=== PATIENT | male | born 1935 | race Caucasian/White ===

== ENCOUNTER → 2017-09-30 | Outpatient (REF) | payer MEDICARE, OTHER ==
[2017-09-30 15:24] LABS: TOTAL PROTEIN,RANDOM URINE 680.6 MG/DL (0.0-12.0)
[2017-10-01 10:38] LABS: CREATININE,RANDOM URINE 81.6 MG/DL
== END ==
LOC: M LAB REF 12:56
DX: N18.4 Chronic kidney disease, stage 4 (severe) (principal)
CPT/HCPCS: 82570

== ENCOUNTER → 2017-10-15 | Outpatient (CLI) | payer MEDICARE, OTHER | LOC: M RAD 13:53 | DX: Z01.818 Encounter for other preprocedural examination (principal); R91.8 Other nonspecific abnormal finding of lung field; I50.9 Heart failure, unspecified; I11.0 Hypertensive heart disease with heart failure; E11.9 Type 2 diabetes mellitus without complications; K21.9 Gastro-esophageal reflux disease without esophagitis | CPT/HCPCS: 71046 ==

== ENCOUNTER → 2017-11-07 | Outpatient (REF) | payer MEDICARE, OTHER ==
[2017-11-07 19:41] LABS: FERRITIN 152 NG/ML (26-388); IRON (FE) 62 UG/DL (65-175); PERCENT SATURATION 21.8 % (19.7-50.0); TOTAL IRON BINDING CAPACITY 284 UG/DL (250-450)
[2017-11-07 20:06] LABS: TOTAL PROTEIN,RANDOM URINE 477.9 MG/DL (0.0-12.0)
== END ==
LOC: M LAB REF 17:10
DX: N18.4 Chronic kidney disease, stage 4 (severe) (principal); E11.22 Type 2 diabetes mellitus with diabetic chronic kidney disease; D63.1 Anemia in chronic kidney disease
CPT/HCPCS: 83550

== ENCOUNTER → 2018-01-02 | Outpatient (REF) | payer MEDICARE, OTHER ==
[2018-01-02 16:57] LABS: HEMOGLOBIN 11.5 g/dl (13.5-17.5)
[2018-01-02 17:35] LABS: ANION GAP 11 MEQ/L (8-16); BLOOD UREA NITROGEN 88 MG/DL (7-18); CALCIUM LEVEL 8.1 MG/DL (8.8-10.2); CARBON DIOXIDE LEVEL 21 MEQ/L (21-32); CHLORIDE LEVEL 111 MEQ/L (98-107); CREATININE FOR GFR 3.44 MG/DL (0.70-1.30); GLOMERULAR FILTRATION RATE 18.3 (>35); GLUCOSE, FASTING 103 MG/DL (70-100); POTASSIUM SERUM 4.3 MEQ/L (3.5-5.1); SODIUM LEVEL 143 MEQ/L (136-145)
== END ==
LOC: M LABDRAW1 15:56
DX: M48.061 Spinal stenosis, lumbar region without neurogenic claudication (principal)
CPT/HCPCS: 80048

== ENCOUNTER 2018-01-07 11:45 | Inpatient (IN) | payer MEDICARE, OTHER ==
[2018-01-07] MEDS: methylPREDNISolone INJ 125 MG/2 ML VIAL (J2930) IV ×2 (06:00)
[2018-01-07] MEDS: LR 1,000 ML IV ×2 (06:00→16:45)
[2018-01-07] MEDS: BUPIVACAINE/EPIN 0.25% 30 ML VIAL As Ordered (10:26)
[2018-01-07] MEDS: THROMBIN SOLN 20,000 UNITS KIT As Ordered (10:26)
[2018-01-07] MEDS: BACITRACIN PWD 50,000 UNITS VIAL As Ordered (10:27)
[2018-01-07] MEDS: BUPIVACAINE HCL 0.5% 10 ML VIAL As Ordered (10:29)
[2018-01-07] MEDS: VANCOMYCIN 1000 MG/20 ML VIAL (J3370) As Ordered (10:29)
[2018-01-07] MEDS: BUPIVACAINE LIPOSOME/PF 1.3% 20 ML VIAL (13.3MG/ML)(EXPAREL) As Ordered (10:30)
[2018-01-07] MEDS ORDERED: methylPREDNISolone INJ 125 MG/2 ML VIAL (J2930) As Ordered (12:10)
[2018-01-07] MEDS ORDERED: ALBUTEROL SULFATE 2.5 MG/0.5 ML INH NEB SOLN As Ordered (12:27)
[2018-01-07] MEDS: ALBUTEROL SULFATE 2.5 MG/0.5 ML INH NEB SOLN INH (12:55)
[2018-01-07 13:11] LABS: BEDSIDE GLUCOSE 108 MG/DL (83-110)
[2018-01-07] MEDS ORDERED: PHENYLephrine HCL 500 MCG/5 ML (100MCG/ML) SYRINGE (J2370) As Ordered (15:11)
[2018-01-07] MEDS ORDERED: ALBUTEROL 6.7GM INHALER **FOR ANES. CART/OMNICELL ONLY As Ordered (15:11)
[2018-01-07] MEDS ORDERED: PROPOFOL 500 MG/50 ML VIAL As Ordered (15:11)
[2018-01-07] MEDS ORDERED: PROPOFOL 200 MG/20 ML VIAL As Ordered (15:11)
[2018-01-07] MEDS ORDERED: fentaNYL 100 MCG/2 ML INJECTION (J3010) As Ordered (15:11)
[2018-01-07] MEDS ORDERED: ROCURONIUM BROMIDE 50 MG/5 ML VIAL As Ordered (15:11)
[2018-01-07] MEDS ORDERED: LIDOCAINE 2% INJ 100 MG/5 ML SDV (FOR ANES.) As Ordered (15:11)
[2018-01-07] MEDS ORDERED: SUCCINYLCHOLINE 100 MG/5 ML SYRINGE (J0330) As Ordered (15:11)
[2018-01-07] MEDS ORDERED: ONDANSETRON 4MG/2ML VIAL (J2405) IV (16:45)
[2018-01-07] MEDS ORDERED: METOCLOPRAMIDE INJ 10MG/2ML VIAL (J2765) IV (16:45)
[2018-01-07] MEDS ORDERED: fentaNYL 100 MCG/2 ML INJECTION (J3010) IV (16:45)
[2018-01-07] MEDS ORDERED: PERCOCET 5MG/325MG TAB PO ×2 (16:45→17:00)
[2018-01-07] MEDS ORDERED: ALBUTEROL 90 MCG/ACT 8GM HFA INHALER INH (17:00)
[2018-01-07] MEDS ORDERED: IPRATROPIUM 0.5MG/ALBUTEROL 2.5MG INH SOL UD 3ML (DUONEB)(J7620) NEB (17:15)
[2018-01-07 17:32] LABS: BASO # 0.1 10^3/uL (0.0-0.2); BASO % 0.8 % (0.0-1.0); EOS # 0.2 10^3/uL (0.0-0.50); EOS % 1.9 % (0.0-3.0); HEMATOCRIT 37.2 % (42.0-52.0); HEMOGLOBIN 11.9 g/dl (13.5-17.5); IMMATURE GRANULOCYTE % 0.5 % (0-3.0); LYMPH # 0.6 10^3/uL (1.5-4.5); LYMPH % 4.9 % (24.0-44.0); MEAN CORPUSCULAR VOLUME 90.5 fl (80.0-96.0); MONO # 0.3 10^3/uL (0.0-0.8); MONO % 2.1 % (0.0-5.0); NEUTROPHILS # 10.6 10^3/uL (1.8-7.7); NEUTROPHILS % 89.8 % (36.0-66.0); PLATELET COUNT, AUTOMATED 231 10^3/uL (150-450); RED BLOOD COUNT 4.11 10^6/uL (4.30-6.10); RED CELL DISTRIBUTION WIDTH 13.5 % (11.5-14.5); WHITE BLOOD COUNT 11.8 10^3/uL (4.0-10.0)
[2018-01-07 17:56] LABS: CPK CREATINE PHOSPHOKINASE 163 U/L (39-308); MB/CK RELATIVE INDEX 4.36 (< OR =4); TROPONIN I < 0.02 NG/ML (< 0.10)
[2018-01-07 17:57] LABS: LACTIC ACID SEPSIS PROTOCOL 1.2 MMOL/L (0.4-2.0)
[2018-01-07 18:02] LABS: ALBUMIN 3.4 GM/DL (3.2-5.2); ALBUMIN/GLOBULIN RATIO 0.97 (1.00-1.93); ALKALINE PHOSPHATASE 70 U/L (45-117); ALT/SGPT 19 U/L (12-78); ANION GAP 10 MEQ/L (8-16); AST/SGOT 16 U/L (7-37); BILIRUBIN,TOTAL 0.2 MG/DL (0.2-1.0); BLOOD UREA NITROGEN 82 MG/DL (7-18); CALCIUM LEVEL 8.7 MG/DL (8.8-10.2); CARBON DIOXIDE LEVEL 23 MEQ/L (21-32); CHLORIDE LEVEL 110 MEQ/L (98-107); CREATININE FOR GFR 3.37 MG/DL (0.70-1.30); GLOMERULAR FILTRATION RATE 18.7 (>35); GLUCOSE, FASTING 145 MG/DL (70-100); MAGNESIUM LEVEL 2.3 MG/DL (1.8-2.4); NT-PRO BNP 789 PG/ML (<450); POTASSIUM SERUM 4.5 MEQ/L (3.5-5.1); SODIUM LEVEL 143 MEQ/L (136-145); TOTAL PROTEIN 6.9 GM/DL (6.4-8.2)
[2018-01-07] MEDS ORDERED: GLUCAGON FOR INJ 1 MG VIAL (J1610) SC (20:00)
[2018-01-07] MEDS ORDERED: GLUCOSE 4 GM CHEW TABLET PO (20:00)
[2018-01-07] MEDS ORDERED: DEXTROSE 50% 50 ML SYRINGE IV (20:00)
[2018-01-07] MEDS: HumaLOG INSULIN (NovoLOG) PER UNIT SC (20:35)
[2018-01-07 21:14] LABS: BEDSIDE GLUCOSE 300 MG/DL (83-110)
[2018-01-07] MEDS: IPRATROPIUM 0.5MG/ALBUTEROL 2.5MG INH SOL UD 3ML (DUONEB)(J7620) NEB ×2 (21:16→23:58)
[2018-01-07] MEDS: OMEPRAZOLE 20 MG CAP PO (22:40)
[2018-01-07] MEDS: EZETIMIBE 10 MG TAB (ZETIA) PO (22:40)
[2018-01-07] MEDS: PARoxetine 20 MG TAB PO (22:40)
[2018-01-08] MEDS: IPRATROPIUM 0.5MG/ALBUTEROL 2.5MG INH SOL UD 3ML (DUONEB)(J7620) NEB ×5 (03:38→15:51)
[2018-01-08 06:02] LABS: HEMATOCRIT 35.1 % (42.0-52.0); HEMOGLOBIN 11.5 g/dl (13.5-17.5); MEAN CORPUSCULAR HEMOGLOBIN 28.9 pg (27.0-33.0); MEAN CORPUSCULAR HGB CONC 32.8 g/dl (32.0-36.5); MEAN CORPUSCULAR VOLUME 88.2 fl (80.0-96.0); PLATELET COUNT, AUTOMATED 234 10^3/uL (150-450); RED BLOOD COUNT 3.98 10^6/uL (4.30-6.10); WHITE BLOOD COUNT 13.1 10^3/uL (4.0-10.0)
[2018-01-08 06:27] LABS: ANION GAP 10 MEQ/L (8-16); BLOOD UREA NITROGEN 84 MG/DL (7-18); CALCIUM LEVEL 8.5 MG/DL (8.8-10.2); CARBON DIOXIDE LEVEL 21 MEQ/L (21-32); CHLORIDE LEVEL 108 MEQ/L (98-107); ESTIMATED AVERAGE GLUCOSE 108 MG/DL (60-110); GLOMERULAR FILTRATION RATE 18.6 (>35); GLUCOSE, FASTING 213 MG/DL (70-100); HEMOGLOBIN A1c 5.4 %; POTASSIUM SERUM 4.4 MEQ/L (3.5-5.1); SODIUM LEVEL 139 MEQ/L (136-145)
[2018-01-08] MEDS ORDERED: OMEPRAZOLE 20 MG CAP PO (09:00)
[2018-01-08] MEDS ORDERED: PARoxetine 20 MG TAB PO (09:00)
[2018-01-08] MEDS ORDERED: EZETIMIBE 10 MG TAB (ZETIA) PO (09:00)
[2018-01-08] MEDS: FEBUXOSTAT 40 MG TABLET (ULORIC) PO (09:57)
[2018-01-08] MEDS: OMEPRAZOLE 20 MG CAP PO (09:57)
[2018-01-08] MEDS: METAMUCIL (PSYLLIUM) PACKET PO (09:57)
[2018-01-08] MEDS: HumaLOG INSULIN (NovoLOG) PER UNIT SC ×3 (09:57→18:01)
[2018-01-08] MEDS: amLODIPine 10 MG TAB PO (09:58)
[2018-01-08] MEDS: TORSEMIDE 20 MG TAB PO (09:58)
[2018-01-08] MEDS: ASPIRIN 81 MG ENTERIC TAB PO (09:58)
[2018-01-08 11:54] LABS: BEDSIDE GLUCOSE 219 MG/DL (83-110)
[2018-01-09 21:58] LABS: BEDSIDE GLUCOSE 199 MG/DL (83-110)
== END 2018-01-08 20:15 | disposition home or self-care (01) | DRG 552 ==
LOC: M OR 11:45 → M MS5PR 17:20
PROVIDERS: Orthopaedic Surgery
DX: M48.061 Spinal stenosis, lumbar region without neurogenic claudication (principal); N18.4 Chronic kidney disease, stage 4 (severe); E11.22 Type 2 diabetes mellitus with diabetic chronic kidney disease; J43.9 Emphysema, unspecified; K21.9 Gastro-esophageal reflux disease without esophagitis; M10.9 Gout, unspecified; M48.02 Spinal stenosis, cervical region; M54.16 Radiculopathy, lumbar region; E66.9 Obesity, unspecified; F41.9 Anxiety disorder, unspecified; F32.9 Major depressive disorder, single episode, unspecified; I12.9 Hypertensive chronic kidney disease with stage 1 through stage 4 chronic kidney disease, or unspecified chronic kidney disease; Z88.0 Allergy status to penicillin; Z79.51 Long term (current) use of inhaled steroids; Z79.84 Long term (current) use of oral hypoglycemic drugs; Z79.899 Other long term (current) drug therapy; Z79.82 Long term (current) use of aspirin; Z96.659 Presence of unspecified artificial knee joint; Z87.891 Personal history of nicotine dependence

== ENCOUNTER → 2018-02-13 | Outpatient (CLI) | payer MEDICARE, OTHER | LOC: M RAD 13:22 | DX: Z01.818 Encounter for other preprocedural examination (principal); I87.2 Venous insufficiency (chronic) (peripheral); N18.3 Chronic kidney disease, stage 3 (moderate); I12.9 Hypertensive chronic kidney disease with stage 1 through stage 4 chronic kidney disease, or unspecified chronic kidney disease | CPT/HCPCS: G0365 ==

== ENCOUNTER 2018-02-18 11:09 | Day surgery (SDC) | payer MEDICARE, OTHER ==
[~2018-02-18 11:09] MED LIST: LIDOCAINE 1% MDV 20ML VIAL SQ
[2018-02-18 12:17] LABS: BEDSIDE GLUCOSE 126 MG/DL (83-110)
[2018-02-18] MEDS: LR 1,000 ML IV (12:24)
[2018-02-18 12:35] LABS: POTASSIUM SERUM 4.2 MEQ/L (3.5-5.1)
[2018-02-18] MEDS ORDERED: LIDOCAINE 2% INJ 100 MG/5 ML SDV (FOR ANES.) As Ordered (12:42)
[2018-02-18] MEDS ORDERED: PROPOFOL 200 MG/20 ML VIAL As Ordered ×4 (12:42→13:51)
[2018-02-18] MEDS ORDERED: MIDAZOLAM INJ 2 MG/2 ML VIAL (J2250) As Ordered (12:43)
[2018-02-18] MEDS ORDERED: fentaNYL 100 MCG/2 ML INJECTION (J3010) As Ordered (12:43)
[2018-02-18] MEDS: HEPARIN SOD (PORCINE) 5000 UNITS/ML VIAL As Ordered (12:52)
[2018-02-18] MEDS: LIDOCAINE 1% SDV INJ 30 ML VIAL As Ordered ×2 (12:52)
[2018-02-18] MEDS: BUPIVACAINE HCL 0.25% 30 ML VIAL As Ordered ×2 (12:52)
[2018-02-18] MEDS ORDERED: ALBUTEROL SULFATE 2.5 MG/0.5 ML INH NEB SOLN As Ordered (12:57)
[2018-02-18] MEDS ORDERED: D5W/0.2% SODIUM CHLORIDE 1,000 ML IV (13:15)
[2018-02-18] MEDS ORDERED: ALBUTEROL SULFATE 2.5 MG/0.5 ML INH NEB SOLN INH (13:15)
[2018-02-18] MEDS ORDERED: GLYCOPYRROLATE INJ 0.2 MG/ML 2 ML VIAL As Ordered (13:43)
== END 2018-02-18 15:35 | disposition home or self-care (01) ==
LOC: M SDC 11:09
DX: N18.9 Chronic kidney disease, unspecified (principal)
CPT/HCPCS: 36821

== ENCOUNTER → 2018-03-07 | Outpatient (CLI) | payer MEDICARE, OTHER ==
[~2018-03-07] MED LIST changes: +ISOVUE-300 61% 50ML VIAL (Q9967) As Ordered; -LIDOCAINE 1% MDV 20ML VIAL SQ; +LIDOCAINE 2% MDV 20 ML VIAL As Ordered
== END ==
LOC: M IRPRO 09:19
DX: N18.6 End stage renal disease (principal); Z53.8 Procedure and treatment not carried out for other reasons

== ENCOUNTER → 2018-08-19 | Outpatient (REF) | payer MEDICARE, OTHER ==
[~2018-08-19] MED LIST changes: +ACTO30TA15 PO; +AMLO10TA5 PO; +ASPI1TAB20 PO; +AURY1TAB PO; +EZET10TA PO; +FEBU40TA PO; +FLOM0.4C39 PO; +FURO20TA2 PO; +ISOS10TAB PO; -ISOVUE-300 61% 50ML VIAL (Q9967) As Ordered; +JANU100T PO; -LIDOCAINE 2% MDV 20 ML VIAL As Ordered; +OMEP20CA3 PO; +PAXI20TA29 PO; +TORS20TA2 PO; +VENTAER IN
[2018-08-19 14:13] LABS: PERCENT SATURATION 15.4 % (19.7-50.0)
== END ==
LOC: M LAB REF 13:09
PROVIDERS: ATTEND Internal Medicine Nephrology
DX: N18.4 Chronic kidney disease, stage 4 (severe) (principal); E11.22 Type 2 diabetes mellitus with diabetic chronic kidney disease; D63.1 Anemia in chronic kidney disease

== ENCOUNTER → 2018-10-15 | Outpatient (REF) | payer MEDICARE, OTHER ==
[~2018-10-15] MED LIST changes: +ASPI-524 PO; -ASPI1TAB20 PO; -EZET10TA PO; +EZET10TA21 PO; -OMEP20CA3 PO; +OMEP20CA4 PO
[2018-10-15 19:23] LABS: HEPATITIS B CORE ANTIBODY IGM NEGATIVE (NEGATIVE); HEPATITIS B SURFACE ANTIBODY NEGATIVE (POSITIVE); HEPATITIS B SURFACE ANTIGEN NEGATIVE (NEGATIVE); HEPATITIS C VIRUS ABY INDEX 0.1 INDEX (<0.8)
== END ==
LOC: M LAB REF 13:00
PROVIDERS: ATTEND Internal Medicine Nephrology
DX: N18.4 Chronic kidney disease, stage 4 (severe) (principal); E11.22 Type 2 diabetes mellitus with diabetic chronic kidney disease; I70.213 Atherosclerosis of native arteries of extremities with intermittent claudication, bilateral legs

== ENCOUNTER → 2018-10-15 | Outpatient (REF) | payer MEDICARE, OTHER ==
[2018-10-15 13:34] LABS: CHOLESTEROL RISK RATIO 3.815 (<5)
== END ==
LOC: M LAB REF 13:01
PROVIDERS: ATTEND Internal Medicine
DX: I70.213 Atherosclerosis of native arteries of extremities with intermittent claudication, bilateral legs (principal)

== ENCOUNTER → 2018-10-23 | Outpatient (CLI) | payer MEDICARE, OTHER ==
[~2018-10-23] MED LIST changes: +BUPIVACAINE HCL 0.5% 10 ML VIAL As Ordered ONE; -FEBU40TA PO; +FEBU40TA4 PO; +ISOVUE-300 61% 50ML VIAL (Q9967) As Ordered ONE; +LIDOCAINE 2% MDV 20 ML VIAL As Ordered ONE; +MIDAZOLAM INJ 2 MG/2 ML VIAL (J2250) As Ordered ONE; +PAXI10TA12 PO; +diphenhydrAMINE INJ 50MG/ML VIAL (J1200) As Ordered ONE; +fentaNYL 100 MCG/2 ML INJECTION (J3010) As Ordered ONE
[2018-10-23 14:40] VITALS: BP 138/68
--- NOTE | 2018-11-20 10:05 | REPIR ---
DATE OF PROCEDURE: 10/23/2018 ATTENDING SURGEON: Dr. Yoseph Benites DISASTER RECOVERY SPECIALIST: Desiree Rios and Burton Chu PREOPERATIVE DIAGNOSIS: Chronic renal insufficiency, nearing end-stage renal disease, non maturing left radiocephalic arteriovenous fistula. POSTOPERATIVE DIAGNOSIS: Chronic renal insufficiency, nearing end-stage renal disease, non maturing left radiocephalic arteriovenous fistula. PROCEDURE: Left radiocephalic arteriovenous fistulogram, left cephalic vein angioplasty with 6x100 balloon. INDICATION: The patient is an 82-year-old male with end-stage renal disease nearing and who requires access for hemodialysis. The patient underwent creation of a left radiocephalic arteriovenous fistula which is patent, but is non maturing. The patient will undergo a fistulogram with possible angioplasty stent and/or atherectomy. Risks, benefits and alternative treatment options were discussed with the patient. ANESTHESIA: Local sedation with 1 mg Versed and 50 mcg of fentanyl and 3 mL of 2% lidocaine mixed with 0.5% Marcaine. FLUORO TIME: 0.7 minutes. CONTRAST: 1 mL of Isovue-300. SEDATION TIME: From 1425 to 1445 for a total of 20 minutes. HEPARIN: None. COMPLICATIONS: None. DRAINS: None. SPECIMENS: None. IMPLANTS: None. DESCRIPTION OF PROCEDURE: The patient was taken to the angiography suite, placed supine on the angiography table and then prepped and draped in a standard surgical fashion. The left radiocephalic arteriovenous fistula was cannulated with a micropuncture needle after anesthetizing the overlying skin and subcutaneous tissue was local anesthesia. The micropuncture wire was advanced through the micropuncture needle which was upsized to a micropuncture sheath. A fistulogram was performed showing a stenosis in the cephalic vein at the translocation point. A cephalic vein angioplasty was performed with a 6x100 balloon and a completion fistulogram showed resolution of the stenosis with excellent flow through the fistula. Catheters and wires were removed and manual compression was applied at the puncture site for hemostasis. Dressings were then applied. The patient tolerated procedure well. All instrument, sponge and needle counts were correct at the end the case. There were no complications. Dr. Benites was present for and directed the entire case. The patient was transferred to the holding area and subsequently discharged in stable condition.
== END ==
LOC: M IRPRO 13:49
PROVIDERS: ATTEND Surgery Vascular Surgery
DX: T82.590A Other mechanical complication of surgically created arteriovenous fistula, initial encounter (principal); N18.6 End stage renal disease; I12.0 Hypertensive chronic kidney disease with stage 5 chronic kidney disease or end stage renal disease; E11.22 Type 2 diabetes mellitus with diabetic chronic kidney disease; K21.9 Gastro-esophageal reflux disease without esophagitis; N40.0 Benign prostatic hyperplasia without lower urinary tract symptoms; X58.XXXA Exposure to other specified factors, initial encounter; Y93.9 Activity, unspecified; Y92.9 Unspecified place or not applicable; Y99.9 Unspecified external cause status
CPT/HCPCS: 36902; C1725; C1769; C1894; J2250; J3010; Q9967

== ENCOUNTER → 2018-11-27 | Outpatient (CLI) | payer MEDICARE, OTHER ==
[~2018-11-27] MED LIST changes: -BUPIVACAINE HCL 0.5% 10 ML VIAL As Ordered ONE; -ISOVUE-300 61% 50ML VIAL (Q9967) As Ordered ONE; -LIDOCAINE 2% MDV 20 ML VIAL As Ordered ONE; -MIDAZOLAM INJ 2 MG/2 ML VIAL (J2250) As Ordered ONE; -diphenhydrAMINE INJ 50MG/ML VIAL (J1200) As Ordered ONE; -fentaNYL 100 MCG/2 ML INJECTION (J3010) As Ordered ONE
== END ==
LOC: M ST 14:05
PROVIDERS: ATTEND Physician Assistant Medical
DX: K21.9 Gastro-esophageal reflux disease without esophagitis (principal)

== ENCOUNTER 2019-02-02 11:25 | Day surgery (SDC) | payer MEDICARE, OTHER ==
[~2019-02-02] VITALS: Ht 180.3 cm; Wt 101.6 kg
[~2019-02-02 11:25] MED LIST changes: -ASPI-524 PO; +ASPI325T57 PO; +BREO1INH3 PO; +D 1010004 PO; +FERR325T3 PO; +ISOS60TA2 PO; +LANT1000 PO; +NORV5TAB PO; +PANT20TA2 PO; +ROCA0.25 PO
[2019-02-02] MEDS ORDERED: PROPOFOL 200 MG/20 ML VIAL As Ordered ONE (13:46)
[2019-02-02] MEDS ORDERED: LIDOCAINE 2% INJ 100 MG/5 ML SDV (FOR ANES.) As Ordered ONE (13:46)
[2019-02-02] MEDS ORDERED: hydrALAZINE INJ 20 MG/ML VIAL As Ordered ONE (14:13)
[2019-02-02] MEDS ORDERED: LABETALOL HCL 100 MG/20 ML VIAL As Ordered ONE (14:13)
--- NOTE | 2019-02-02 14:22 | ROOR ---
Patient Name: Dale Freitas Procedure Date: 02/02/2019 1:46 PM Date of : 1935 Age: 83 Room: [facility] Gender: Male Note Status: Finalized Procedure: Upper GI endoscopy Indications: Heartburn, Eructation, Regurgitation Providers: Ankit HINOJOSA MD Referring MD: GAYLA DARDEN MD Requesting Provider: Medicines: Monitored Anesthesia Care Complications: No immediate complications. Procedure: Pre-Anesthesia Assessment: - The heart rate, respiratory rate, oxygen saturations, blood pressure, adequacy of pulmonary ventilation, and response to care were monitored throughout the procedure. The Endoscope was introduced through the mouth, and advanced to the second part of duodenum. The upper GI endoscopy was accomplished without difficulty. The patient tolerated the procedure well. Findings: The Z-line was variable and was found 37 cm from the incisors. Localized mucosal changes characterized by nodularity were found at the gastroesophageal junction. Biopsies were taken with a cold forceps for histology. A deformity was found at the gastroesophageal junction. A single 6 mm semi-sessile polyp was found on the anterior wall of the stomach. The polyp was removed with a cold snare. Resection and retrieval were complete. To prevent bleeding after the polypectomy, two hemostatic clips were successfully placed. The exam of the stomach was otherwise normal. The examined duodenum was normal. Impression: - Z-line variable, 37 cm from the incisors. - Nodular mucosa with mild deformity in the gastroesophageal junction seen in retroflexed view.(question previous ulcer disease or surgical change). Biopsied. - A single gastric polyp. Resected and retrieved. Clips were placed. - The stomach was otherwise normal. - Normal examined duodenum. Recommendation: - Telephone endoscopist for pathology results in 2 weeks. - Use Prilosec (omeprazole) 20 mg PO BID. - (the script was sent to your pharmacy on file) - NOTE: -Take the Omeprazole twice a day--continuously. Omeprazole needs to be taken on a schedule to be effective. Omeprazole does not work if taken intermittently "as needed". Ankit Hinojosa MD Ankit HINOJOSA MD 02/02/2019 2:21:46 PM Electronically signed by Ankit HINOJOSA MD Number of Addenda: 0 Note Initiated On: 02/02/2019 1:46 PM Estimated Blood Loss: Estimated blood loss: none.
[2019-02-02 14:50] VITALS: BP 184/87
== END 2019-02-02 14:53 | disposition home or self-care (01) ==
LOC: M OPP 11:25
PROVIDERS: ATTEND Internal Medicine Gastroenterology
DX: K22.8 Other specified diseases of esophagus (principal); K31.89 Other diseases of stomach and duodenum; K31.7 Polyp of stomach and duodenum; R12 Heartburn; R14.2 Eructation; R11.10 Vomiting, unspecified; I50.9 Heart failure, unspecified; E11.9 Type 2 diabetes mellitus without complications; K21.9 Gastro-esophageal reflux disease without esophagitis; D64.9 Anemia, unspecified; Z79.82 Long term (current) use of aspirin; Z79.899 Other long term (current) drug therapy; Z88.0 Allergy status to penicillin; Z88.8 Allergy status to other drugs, medicaments and biological substances; Z87.891 Personal history of nicotine dependence

== ENCOUNTER → 2019-02-11 | Outpatient (REF) | payer MEDICARE, OTHER ==
[2019-02-11 17:31] LABS: PERCENT SATURATION 22.2 % (19.7-50.0)
== END ==
LOC: M LAB REF 16:45
PROVIDERS: ATTEND Internal Medicine Nephrology
DX: N18.4 Chronic kidney disease, stage 4 (severe) (principal); E11.22 Type 2 diabetes mellitus with diabetic chronic kidney disease; D63.1 Anemia in chronic kidney disease

== ENCOUNTER → 2019-05-19 | Outpatient (REF) | payer MEDICARE, OTHER ==
[~2019-05-19] MED LIST changes: +OMEP1CAP73 PO; -OMEP20CA4 PO
[2019-05-20 11:53] LABS: HEPATITIS B CORE ANTIBODY IGM NEGATIVE (NEGATIVE); HEPATITIS B SURFACE ANTIBODY NEGATIVE (POSITIVE); HEPATITIS B SURFACE ANTIGEN NEGATIVE (NEGATIVE); HEPATITIS C VIRUS ABY INDEX < 0.0 INDEX (<0.8)
== END ==
LOC: M LAB REF 13:21
PROVIDERS: ATTEND Nurse Practitioner Family
DX: N18.5 Chronic kidney disease, stage 5 (principal)

== ENCOUNTER → 2019-05-27 | Outpatient (CLI) | payer MEDICARE, OTHER ==
[~2019-05-27] MED LIST changes: +ALTEPLASE 2 MG/2 ML VIAL (J2997 PER 1MG) As Ordered ONE; +CLOPIDOGREL 75 MG TAB As Ordered ONE; +HEPARIN 1,000 UNITS/ML 10ML VIAL (FOR RADIOLOGY& DIALYSIS ONLY)(J1644-10) As Ordered ONE; +ISOVUE-300 61% 50ML VIAL (Q9967) As Ordered ONE; +LIDOCAINE 1% MDV 20ML VIAL As Ordered ONE; +MIDAZOLAM INJ 2 MG/2 ML VIAL (J2250) As Ordered ONE; +fentaNYL 100 MCG/2 ML INJECTION (J3010) As Ordered ONE
--- NOTE | 2019-05-27 15:28 | ROOPDOC ---
[facility] Report Of Operation Report of Operation DATE OF PROCEDURE: 05/27/19 PREPROCEDURE DIAGNOSES: End-stage renal disease with poor flows left upper extremity brachiocephalic AV fistula POSTPROCEDURE DIAGNOSES: Same PROCEDURE: 1. Ultrasound-guided access left cephalic vein left wrist 2. Fistulogram left upper extremity 3. Coil branch of cephalic vein with 8 mm Yohannes coil 4. Coil basilic vein at junction was cephalic vein near the wrist with 8 mm coil, 4 x 3 mm coil, and 5 x 3 mm coil. 5. Angioplasty cephalic vein with 7 x 100 [place] balloon 6. Completion venograms SURGEON: Aleisha Parekh MD ANESTHESIA: Local anesthesia 5 mL lidocaine. No sedation used for this procedure. Heparin 5000 units IV given during the procedure. INDICATION FOR PROCEDURE: This is a very pleasant 83-year-old gentleman with a right upper extremity Yohannes fistula and the dialysis nurses has had trouble accessing him and getting good flows in the more proximal cephalic vein. Examined his fistula under ultrasound and saw several large branches that could potentially be feeling enough blood to make the fistula difficult to access and decreases flows through the cephalic vein. Risks benefits and alternatives to a fistulogram potential intervention were explained to the patient. He was agreeable to proceed. Informed consent was obtained. INTERPRETATION: 1. The cephalic vein fistula is widely patent with no significant areas of stenosis. There is a large retrograde branch of the cephalic vein proximal to the anastomosis that is dealing blood from the fistula, and there is a large antegrade vein, I suspect to be the basilic vein, a few centimeters more proximal to the other branch, also stealing significant blood from the fistula. 2. Successful coiling of the retrograde branch and the antegrade branches with improvement of thrill in the fistula. 3. Improve flow through the cephalic vein bypassing the branches after angioplasty was 7 x 100 [place] balloon 4. Brisk flow through the fistula noted on completion images, but on ultrasound while trying to ines the cephalic vein for access, it appeared there was some kind of debris or thrombus within the vein. However, repeat fistulogram did not show vein thrombosis. The branches were successfully coiled, no extravasation was noted, and no thrombus was noted within the cephalic vein fistula. REPORT OF OPERATION: The patient was brought to the angiographic suite in stable condition. His left upper extremity was prepped and draped in a sterile fashion. His left upper extremity was prepped and draped in sterile fashion. A timeout was performed. Local anesthesia was a registered nurse obstetrics to skin and subcutaneous tissue over the cephalic vein near the AV anastomosis at the wrist. A microneedle was used to access the vein under ultrasound guidance and a wire was passed through this access and a micro-sheath was placed over the wire using a Seldinger te chnique. Ultrasound was used to examine the fistula, and we saw a large retrograde branch coming off and a large antegrade branches that I suspect to be the basilic vein because he can follow it up to the basilic vein at the antecubital. When I compress the basilic vein branch there is improved thrill in the cephalic vein fistula. This also occurs when I compress the retrograde bra nch. We then exchanged the wire for an O35 Glidewire through the access into the central system under fluoroscopic guidance. We then exchanged the sheath for 6 [place] sheath and flushed the sheath with saline. A fistulogram was performed, please see interpretation above. Next, we utilized a flushed catheter in the Glidewire to access the retrograde branch. An 8 mm Yohannes coil was placed through this access after quick venogram to confirm we were in the branch and away from the fistula. The coil was successful at occluding the branch. We then selected the basilic vein branch and a quick venogram confirm we were in good position. We then deployed an 8 mm Yohannes coil, and a 5 mm quell, and the 4 mm coil. Following this there was good occlusion of this vein as well. There was a dramatic improvement in the thrill of the fistula. Next, we advanced a 7 x 100 [place] balloon across the distal cephalic vein near the AV anastomosis to about the mid arm. The three-minute inflations was performed at low atmospheres to di lated up the cephalic vein and further occlude the branches. Following this there was rapid flow through the cephalic vein with no areas of stenosis or narrowing, and an excellent thrill. A Prolene suture was placed at the access site and the sheath was removed. We then utilized ultrasound to try to map and marked on the skin the cephalic vein to make access easier for the dialysis nurses. Upon examining the vein, I was concerned that I saw some debris and possible thrombus, nonocclusive, within the vein. This is different than what we saw on our completion imaging. I was concerned that maybe some thrombus developed while we were holding pressure at the end of the procedure. Therefore, under ultrasound, I re-access the cephalic vein near the end AV anastomosis with a microneedle, passed a micro-wire through this access and then a micro-sheath was placed. Through the micro-sheath, 5000 units of heparin was given and heparin saline was used to flush the fistula. Following this, a fistulogram was performed through the micro-sheath and I did not see any thrombus or occlusion within the vein. There is still an excellent thrill. It is unclear to me what we saw on ultrasound, but there did not appear to be any thrombosis occurring on fistulogram. A Prolene suture was placed at the access site in the needle was removed after we flushed a few more times with heparinized saline. Sterile dressings were applied at both access sites. We again set to ines the vein on the skin utilizing ultrasound, and we marked from the wrist to the antecubital. Following this the patient was taken to recovery in stable condition. There were no complications. He tolerated the procedure well without sedation. ESTIMATED BLOOD LOSS: Approximately 3 mL. COMPLICATIONS: None PLAN: It is okay to use fistula for dialysis. A single dose of Plavix will be given in recovery to discourage any thrombus formation in the main cephalic vein fistula after angioplasty and coiling of the branches. No ongoing Plavix is needed from my standpoint but the patient should continue aspirin daily. Okay to resume home medications and diet. ALEISHA PAREKH MD May 27, 2019 15:28
[2019-05-27 15:30] VITALS: BP 172/76
== END ==
LOC: M IRPRO 11:39
PROVIDERS: ATTEND Surgery Vascular Surgery
DX: T82.590A Other mechanical complication of surgically created arteriovenous fistula, initial encounter (principal); N18.6 End stage renal disease; X58.XXXA Exposure to other specified factors, initial encounter; Y93.9 Activity, unspecified; Y92.9 Unspecified place or not applicable; Y99.9 Unspecified external cause status
CPT/HCPCS: 36902; C1725; C1769; C1894; J1644; J2250; J3010; Q9967

== ENCOUNTER → 2019-10-21 | Outpatient (CLI) | payer MEDICARE, OTHER ==
[~2019-10-21] MED LIST changes: -ALTEPLASE 2 MG/2 ML VIAL (J2997 PER 1MG) As Ordered ONE; -AMLO10TA5 PO; +AMLO1TAB25 PO; -CLOPIDOGREL 75 MG TAB As Ordered ONE; -HEPARIN 1,000 UNITS/ML 10ML VIAL (FOR RADIOLOGY& DIALYSIS ONLY)(J1644-10) As Ordered ONE; -ISOVUE-300 61% 50ML VIAL (Q9967) As Ordered ONE; -LIDOCAINE 1% MDV 20ML VIAL As Ordered ONE; -MIDAZOLAM INJ 2 MG/2 ML VIAL (J2250) As Ordered ONE; -PANT20TA2 PO; +PANT20TA6 PO; -fentaNYL 100 MCG/2 ML INJECTION (J3010) As Ordered ONE
[2019-10-21 16:43] VITALS: BP 130/74
--- NOTE | 2019-10-22 01:58 | REP ---
POST BIOPSY MAMMOGRAM RIGHT BREAST: Following ultrasound-guided biopsy of right retroareolar region, post biopsy mammogram right breast is performed in the ML and CC projections. A retroareolar Hydromark clip is noted within an area of density.
--- NOTE | 2019-10-22 01:59 | REP ---
ULTRASOUND GUIDANCE FOR RIGHT BREAST BIOPSY: Real-time sonographic guidance was provided for Dr. Salcedo, who performed ultrasound-guided biopsy of a hypoechoic area in the right retroareolar region. A biopsy needle is seen in that area.
--- NOTE | 2019-12-31 18:19 | ROOPDOC ---
[facility] Report Of Operation Report of Operation This is a late entry note for the encounter from the date 10/21/19. Delay is due to major systemwide [facility] computer outage. Date of procedure 10/21/19 Dx: Right breast mass Procedure : Ultrasound guided biopsy of the right breast mass with clip plac ement Findings: Postbiopsy clip is seen in the right breast retroareolar density surgeon : Holly Owens Lidocaine 1% LOT [id number] Expiration 08/2022 Sodium Bicarbonate 8.4% LOT [id number] Expiration 09/2020 Hydromark clip LOT [id number] Expiration 04/2022 SHAPE 3 Bx device: BARD [id number] x10 cm LOT [id number] Expiration 05/2022 Informed consent was obtained. The most common risk and possible complications including bleeding, hematoma, bruising, infection, injury to surrounding structures were explained to the patient and he expressed understanding. Patient was placed on the bed in the supine position. Appropriate time out was done stating patients name, date of , and the procedure to be performed. The right breast was prepped and draped in the usual fashion. The ultrasound was used to confirm the location of the lesion in the right breast at the retro=areolar region. Plain Lidocaine 1% and 8.4% sodium bicarbonate 10:1 mix was used to anesthetize the skin, the biopsy site and tissues along the anticipated biopsy tract. Small skin incision was made with blade number 11. BARD Marquee 14G cannula with introducer ([id number]) was inserted through the incision and advanced under the ultrasound guidance to position immediately adjacent to the lesion. Next, the introducer was removed and BARD Marquee 14G biopsy device was places in the cannula. Pre-biopsy imaging, and post-biopsy imaging were captured. Five good core biopsies were taken at various levels of the lesion. Specimen was placed in formaldehyde, labeled with appropriate biopsy site and patients name, and sent to pathology for evaluation. Next, the biopsy device was withdrawn and a clip introducer was inserted into the biopsy site via the cannula. The SHAPE 3 Hydromark clip was deployed under sonographic guidance. Post-clip placement image was captured. Manual pressure over the biopsy cavity and tract was held after the clip introducer was withdrawn. No bleeding was noted upon removal of the pressure. Post-biopsy mammogram of the right breast was obtained and showed clip in expected position. Postprocedural dressing was placed. Patient tolerated procedure well. Discharge instructions were discussed with the patient and he expressed understanding. HOLLY OWENS DO Dec 31, 2019 18:17
== END ==
LOC: M WHCPRO 14:30
PROVIDERS: ATTEND Surgery
DX: N63.41 Unspecified lump in right breast, subareolar (principal); N62 Hypertrophy of breast

== ENCOUNTER → 2019-10-26 | Outpatient (REF) | payer MEDICARE, OTHER ==
[2019-10-26 18:05] LABS: HCG, SERUM QUANTITATIVE < 1.0 MIU/ML
[2019-10-26 18:12] LABS: LUTEINIZING HORMONE 4.6 mIU/mL (3.1-34.6)
[2019-10-26 18:13] LABS: FOLLICLE STIMULATING HORMONE 17.8 mIU/mL (1.4-18.1)
[2019-11-23 14:42] LABS: TESTOSTERONE FREE (DIRECT) 7.6 pg/mL (6.6-18.1)
== END ==
LOC: M PLALAB 15:09
PROVIDERS: ATTEND Surgery
DX: N62 Hypertrophy of breast (principal)

== ENCOUNTER → 2020-08-25 | Outpatient (CLI) | payer MEDICARE, OTHER ==
[~2020-08-25] MED LIST changes: +ISOS1TAB36 PO; -ISOS60TA2 PO
== END ==
LOC: M LABSMTC 11:18
PROVIDERS: ATTEND Family Medicine
DX: Z01.812 Encounter for preprocedural laboratory examination (principal); Z11.52 Encounter for screening for COVID-19